=== PATIENT | male | born 1970 | race Caucasian/White ===

== ENCOUNTER → 2025-09-15 | Emergency (ER) | payer OTHER ==
[~2025-09-15] VITALS: Ht 185.4 cm; Wt 91.6 kg
[~2025-09-15] MED LIST: AMOX-CLAV 875-1 EACH PO; CEFTRIAXONE SODIUM 1,000 MG VIAL IM STA; DIPHTH,PERTUSS(ACELL),TET VAC 0.5 ML VIAL IM STA; INTESTINEX680 M1 PO; KETOROLAC TROMETHAMINE 15 MG VIAL IM STA; NABUMETONE500 MG PO; SALINE WOUND W210 ML
[2025-09-15 20:57] VITALS: BP 137/70; O2SAT 99
== END | disposition home or self-care (01) ==
LOC: EDBD 20:40 → ER 20:40
DX: S01.511A Laceration without foreign body of lip, initial encounter (principal); W18.39XA Other fall on same level, initial encounter; Y93.89 Activity, other specified; Y92.59 Other trade areas as the place of occurrence of the external cause; Y99.9 Unspecified external cause status